=== PATIENT | male | born 1995 | race Caucasian/White ===

== ENCOUNTER 2021-07-26 05:59 | Emergency (ER) | payer OTHER ==
[~2021-07-26] VITALS: Ht 177.8 cm; Wt 158.8 kg
[2021-07-26 06:32] VITALS: BP_SYST 136
[2021-07-26] MEDS ORDERED: DEXAMETHASONE SOD PHOSPHATE 10 MG/ML VIAL PO ONE (07:00)
[2021-07-26 07:07] VITALS: BP_SYST 136
== END 2021-07-26 07:08 | disposition home or self-care (01) ==
LOC: SED 05:59
DX: K12.2 Cellulitis and abscess of mouth (principal)
CPT/HCPCS: 99283; J1100

== ENCOUNTER 2021-07-31 14:20 | Emergency (ER) | payer OTHER ==
[~2021-07-31] VITALS: Ht 180.3 cm; Wt 158.8 kg
[2021-07-31 14:28] VITALS: BP_SYST 153
--- NOTE | 2021-07-31 14:40 | NUR ---
Patient to ER bed 5 to gown for evaluation. Side rails up. Report given to .MARA
[2021-07-31] MEDS ORDERED: DIPHENHYDRAMINE HCL 50 MG CAPSULE PO ONE (15:45)
[2021-07-31] MEDS ORDERED: FAMOTIDINE 20 MG TABLET PO ONE (15:45)
[2021-07-31] MEDS ORDERED: DEXAMETHASONE SOD PHOSPHATE 4 MG/ML VIAL PO ONE (15:45)
--- NOTE | 2021-07-31 15:55 | NUR ---
DR ROLDAN IN TO ASSESS
--- NOTE | 2021-07-31 16:05 | NUR ---
MEDICATED ORDERED, TOLERATING PO WELL. NO DISTRESS
--- NOTE | 2021-07-31 16:57 | NUR ---
STATES FEELING BETTER, RESP UNLABORED, COMMUNICATES CLEARLY IN FULL COMPLETE SENTECES, SKIN WARM AND DRY
[2021-07-31] MEDS ORDERED: EPIN0.3P3 IM (16:58)
[2021-07-31] MEDS ORDERED: PRED20TA PO (17:01)
[2021-07-31 17:46] VITALS: BP_SYST 135
--- NOTE | 2021-07-31 17:47 | NUR ---
Patient given written and verbal discharge instructions and verbalizes understanding. ER MD discussed with patient the results and treatment provided. Patient in stable condition. ID arm band removed. Rx of PREDNISONE given. Patient educated on pain management and to follow up with PMD. Pain Scale 0/10 Opportunity for questions provided and answered. Medication side effect fact sheet provided.
== END 2021-07-31 17:47 | disposition home or self-care (01) ==
LOC: SED 14:20
DX: T78.40XA Allergy, unspecified, initial encounter (principal); Z79.899 Other long term (current) drug therapy; X58.XXXA Exposure to other specified factors, initial encounter
CPT/HCPCS: 99284; J1100; Q0163